=== PATIENT | female | born 2000 | race Caucasian/White ===

== ENCOUNTER 2020-03-10 11:43 | Outpatient (REF) | payer MEDICAID, SELFPAY ==
[2020-03-14 13:42] LABS: Patient Race White; SARS-CoV-2 RNA Undetected (Undetected); SARS-CoV-2 Specimen Source Nasal
== END 2020-03-10 12:03 ==
LOC: NCHCN 11:43
PROVIDERS: PCP Nurse Practitioner Family; Visit Provider Nurse Practitioner Family
DX: J06.9 Acute upper respiratory infection, unspecified (principal)
CPT/HCPCS: U0003